=== PATIENT | male | born 2000 | race African-American/Black ===

== ENCOUNTER 2021-09-20 22:37 | Emergency (ER) | payer SELFPAY | END 2021-09-21 00:51 | disposition home or self-care (01) | LOC: CSHERS 22:37 | DX: J11.1 Influenza due to unidentified influenza virus with other respiratory manifestations (principal) | CPT/HCPCS: 99283 ==

== ENCOUNTER 2022-05-15 21:43 | Emergency (ER) | payer SELFPAY ==
[2022-05-15 23:22] LABS: SARS-CoV-2 NAA Rapid Test Not Detected (NotDetected)
== END 2022-05-15 23:29 | disposition home or self-care (01) ==
LOC: CSHERS 21:43
DX: R19.7 Diarrhea, unspecified (principal)
CPT/HCPCS: 99284

== ENCOUNTER 2022-09-23 11:38 | Emergency (ER) | payer SELFPAY ==
[2022-09-23] MEDS ORDERED: Tetracaine 0.5% PF 4 ML BOT ONE (12:00)
[2022-09-23] MEDS ORDERED: Fluorescein Opthalmic Strip ONE (12:00)
== END 2022-09-23 12:22 | disposition home or self-care (01) ==
LOC: CSHERS 11:38
DX: H16.133 Photokeratitis, bilateral (principal)
CPT/HCPCS: 99283

== ENCOUNTER 2022-12-30 17:10 | Emergency (ER) | payer SELFPAY | END 2022-12-30 22:00 | disposition left against medical advice (07) | LOC: CSHERS 17:10 | DX: Z53.21 Procedure and treatment not carried out due to patient leaving prior to being seen by health care provider (principal) ==